=== PATIENT | male | born 1995 | race Caucasian/White ===

== ENCOUNTER 2025-05-17 11:36 | Emergency (ER) | payer OTHER ==
[~2025-05-17] VITALS: Ht 180.3 cm; Wt 77.0 kg
[2025-05-17 11:41] VITALS: O2SAT 100
[2025-05-17 11:43] VITALS: BP 132/78; PULSE 60; RESP 18; TEMP 36.7; O2SAT 99
[2025-05-17] MEDS ORDERED: LIDO15CR6 TP (13:19)
== END 2025-05-17 14:48 | disposition home or self-care (01) ==
LOC: ER 11:36
DX: K60.2 Anal fissure, unspecified (principal)
CPT/HCPCS: 99282